=== PATIENT | male | born 2000 | race African-American/Black ===

== ENCOUNTER 2018-02-20 23:02 | Emergency (ER) | payer SELFPAY ==
[2018-02-20] MEDS ORDERED: Ketorolac Tromethamine 30 MG/ML VIAL ONE (23:57)
--- NOTE | 2018-02-20 23:57 | RAD ---
TWO VIEW CHEST: 02/20/18 COMPARISON: 04/19/15. INDICATION: Chest pain, cough. FINDINGS: There is no consolidation, effusion or pneumothorax. The cardiac silhouette is normal in size. IMPRESSION: No focal consolidation. POS: [facility]
== END 2018-02-21 00:30 | disposition home or self-care (01) ==
LOC: ERS 23:02
DX: M94.0 Chondrocostal junction syndrome [Tietze] (principal); J20.8 Acute bronchitis due to other specified organisms
CPT/HCPCS: 71046; 96372; J1885

== ENCOUNTER 2018-10-19 23:25 | Emergency (ER) | payer SELFPAY ==
[2018-10-19] MEDS ORDERED: Lidocaine Viscous Sol 2% 15 ml UD Cup ONE (23:38)
[2018-10-19] MEDS ORDERED: Mag-Al 1200 mg/1200 mg/30 ML UDCUP ONE (23:38)
--- NOTE | 2018-10-19 23:51 | RAD ---
EXAM: Chest 2 views: HISTORY: Chest pain on the left COMPARISON: 02/20/2018 FINDINGS: There is a normal-sized cardiomediastinal silhouette. There is no evidence of consolidation, mass, or pleural effusion. The bones are unremarkable. IMPRESSION: No evidence of acute cardiopulmonary disease
== END 2018-10-20 00:07 | disposition home or self-care (01) ==
LOC: ERS 23:25
DX: R07.89 Other chest pain (principal)
CPT/HCPCS: 71046; 93005